=== PATIENT | male | born 1990 | race African-American/Black ===

== ENCOUNTER 2017-03-20 15:55 | Emergency (ER) | payer SELFPAY ==
[~2017-03-20 15:55] MED LIST: KEFLEX PO; PEN-VEE K PO; VICODIN 5/500 T1 TAB PO
== END 2017-03-20 16:24 | disposition home or self-care (01) ==
LOC: CED 15:55 → CFTX 15:55
DX: H10.9 Unspecified conjunctivitis (principal)
CPT/HCPCS: 99282

== ENCOUNTER 2017-06-11 19:08 | Emergency (ER) | payer SELFPAY ==
[~2017-06-11] VITALS: Ht 185.4 cm; Wt 124.7 kg
--- NOTE | ~2017-06-11 | CR173 ---
[facility] A Service of [facility] RADIOLOGY TEXT RESULTS PATIENT: GERALDO CASTRO LOCATION: CFTX : 88 UNIT #: [id number] AGE: [address]: JERRY HA APRN SEX: M ORDER DR: [id number] [facility] [address] [place], [place] [address] [id number] MR#: [id number] Acc #: [id number] NAME: GERALDO CASTRO : 1990 SEX: M STUDY DATE/TIME: 06/11/2017 20:56 UNIT: [facility] ROOM: STUDY DESCRIPTION: CR Knee 3 Views Rt Attending Physician: Jerry Ha Aprn Ordering Physician: Jerry Ha Aprn Primary Care Physician: No Primary Care Physician MEDICAL IMAGING REPORT This report is preliminary unless electronic signature is present EXAM Right knee. HISTORY Knee pain after falling off a porch today. TECHNIQUE Three views of the knee were obtained. FINDINGS There is a small joint effusion. There is no evidence of fracture or a destructive bone lesion. 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 No radiodense foreign bodies are noted. IMPRESSION Bipartite patella. No fractures are noted. There is a small joint effusion. Dictated by... Balta Yarbrough M.D. THIS IS AN ELECTRONICALLY VERIFIED REPORT Balta Yarbrough M.D. at 06/13/2017 7:08 AM LILI/daniel TD: 06/12/2017 09:36 JOB #: [id number] MEDICAL IMAGING REPORT Page 1 of 1 COPY
== END 2017-06-11 22:05 | disposition home or self-care (01) ==
LOC: CFTX 19:08 → CED 19:08 → CFTX 20:54
DX: S80.01XA Contusion of right knee, initial encounter (principal); W17.89XA Other fall from one level to another, initial encounter
CPT/HCPCS: 29505; 73562; 99283